=== PATIENT | female | born 1965 | race Asian ===

== ENCOUNTER 2020-01-02 17:45 | Emergency (ER) | payer MEDICAID ==
[~2020-01-02] VITALS: Ht 157.5 cm; Wt 56.7 kg
[2020-01-02 18:06] VITALS: Ht 157.5 cm; Wt 56.7 kg
[2020-01-02 19:40] VITALS: BP 133/84
== END 2020-01-02 19:40 | disposition home or self-care (01) ==
LOC: ED 17:45
DX: M54.5 Low back pain (principal)
CPT/HCPCS: J1885